=== PATIENT | male | born 1985 | race Caucasian/White ===

== ENCOUNTER 2018-07-25 14:42 | Emergency (ER) | payer MEDICAID ==
[2018-07-25] MEDS: HYDROmorphONE 1 MG/ML SYG IV (15:00)
[2018-07-25] MEDS: ONDANSETRON 4 MG INJ IV (15:00)
== END 2018-07-25 16:54 | disposition home or self-care (01) ==
LOC: E/R 14:42
DX: M54.16 Radiculopathy, lumbar region (principal); E66.01 Morbid (severe) obesity due to excess calories; Z68.42 Body mass index [BMI] 45.0-49.9, adult
CPT/HCPCS: 96374; 96375; 99284-25